=== PATIENT | female | born 1950 | race Asian ===

== ENCOUNTER 2018-06-23 13:04 | Emergency (ER) | payer MEDICARE, OTHER, SELFPAY ==
[2018-06-23 13:10] VITALS: BP 156/74; PULSE 61; RESP 13; TEMP 36.9; O2SAT 97; BMI 25.0
--- NOTE | 2018-06-23 13:25 | ED.DIZZY ---
HPI - Dizziness <Deborah Sin PA-C - Last Filed: 06/23/18 21:41> General Chief Complaint: Dizziness Stated Complaint: BALL ON RIGHT SIDE OF THROAT Time Seen by Provider: 06/23/18 13:25 Source: patient and family Mode of arrival: ambulatory Limitations: no limitations History of Present Illness HPI Narrative: This 68-year-old female comes in today she states due to her 's concerns about swelling in her neck. She states that when she got up this morning and looked in the mirror, she noted that the right side of her neck looked swollen like a ?golf ball?. Her noticed this as well. She states that this was not painful, but does tend to sleep on her left side with her neck bent. She states that she has not noted any swollen glands or lumps. She has not had any fever or sweats. She has not had any recent travel, any illness or new rashes. She has had an intermittent mild cough for 10 years and notes she had normal lung studies done here last year. This has not been any worse. She has not had any wheeze or dyspnea. She did have very momentary dizziness when she 1st got out of bed this morning. She states that this resolved quickly on its own and she has felt fine since she ate breakfast. She states that she has not had any chest pain, nausea, vomiting, new swelling in her extremities or any other new symptoms such as pain or difficulty with swallowing, and the neck swelling is much improved now. Her concurs with this as well. She has been going about her usual activities Related Data Home Medications Medication Instructions Recorded Confirmed amlodipine 10 mg PO DAILY 06/23/18 06/23/18 aspirin 1 tab PO DAILY 06/23/18 06/23/18 fenofibrate nanocrystallized 1 tab PO DAILY 06/23/18 06/23/18 [Triglide] insulin glargine [Lantus Solostar 1 dose SUBCUT DIRECTED 06/23/18 06/23/18 U-100 Insulin] metformin 1,000 mg PO BID 06/23/18 06/23/18 metoprolol succinate 1 tab PO DAILY 06/23/18 06/23/18 pravastatin 1 tab PO DAILY 06/23/18 06/23/18 sertraline 100 mg PO DAILY 09/25/18 09/25/18 telmisartan-hydrochlorothiazid 1 tab PO DAILY 06/23/18 06/23/18 [Micardis HCT] Review of Systems <HUGO Steinberg Last Filed: 06/23/18 21:41> Review of Systems All systems reviewed & are unremarkable except as noted in HPI and below PFSH <HUGO Steinberg Last Filed: 06/23/18 21:41> Comment: Occasional ETOH, no street drugs Exam <HUGO Steinberg Last Filed: 06/23/18 21:41> Narrative Exam Narrative: GENERAL APPEARANCE: Patient sitting comfortably, in no distress. Appears well. EYES: PERRL, EOMI. ORAL CAVITY: Normal oropharynx. THROAT: Clear. NECK/THYROID: Neck supple, full range of motion, there is some subtle enlargement/asymmetry of the right anterior cervical musculature versus the left. There are no circumscribed anterior nodes. There are palpable bilateral posterior nodes less than 1 cm in diameter, symmetric. Trachea is midline with normal swallow LUNGS: Clear to auscultation bilaterally, no cough on exam. HEART: RRR without murmur, nl S1, S2, no S3 or S4. ABDOMEN: Soft, nontender, nondistended EXTREMITIES: No cyanosis, edema or calf tenderness DERMATOLOGIC: No exanthem NEUROLOGIC: Patient is alert and oriented with normal speech and coordination LYMPH: No axillary or supraclavicular nodes Initial Vital Signs Initial Vital Signs: Vital Signs Temperature 98.4 F 06/23/18 13:10 Pulse Rate 61 06/23/18 13:10 Respiratory Rate 13 06/23/18 13:10 Blood Pressure 156/74 H 06/23/18 13:10 Pulse Oximetry 97 06/23/18 13:10 <Zhou Matt DO - Last Filed: 06/24/18 07:02> Initial Vital Signs Initial Vital Signs: Vital Signs Temperature 98.4 F 06/23/18 13:10 Pulse Rate 61 06/23/18 13:10 Respiratory Rate 13 06/23/18 13:10 Blood Pressure 156/74 H 06/23/18 13:10 Pulse Oximetry 97 06/23/18 13:10 Course <HUGO Steinberg Last Filed: 06/23/18 21:41> Additional Information: Patient does have some asymmetry in her neck, and some lymph nodes noted on exam, however this is significantly improved from morning. She had some momentary postural dizziness this morning that has resolved, and she is feeling normal now. Offered further evaluation now with imaging and lab work, versus doing as an outpatient, and she prefers to do as an outpatient. She agreed to return if any acutely worsening symptoms again prior to follow-up with her PCP. Vital Signs - 8 hr 06/23/18 13:10 Temperature 98.4 F Pulse Rate 61 Respiratory Rate 13 Blood Pressure 156/74 H Pulse Oximetry 97 <Zhou Matt, DO - Last Filed: 06/24/18 07:02> Vital Signs - 8 hr 06/23/18 13:10 Temperature 98.4 F Pulse Rate 61 Respiratory Rate 13 Blood Pressure 156/74 H Pulse Oximetry 97 Discharge Plan Departure Patient Disposition: Home Clinical Impression: Enlarged lymph node in neck, Postural dizziness Discharge Date/Time: 06/23/18 14:01 Interventions: ED Discharge Assessment Last Done: 06/23/18 14:01 Activity Restrictions/Additional Instructions: Since you are feeling better now and your neck swelling is much improved, it is okay to follow up as an outpatient as we discussed. If you continue to have swollen glands, you do need to have further testing including lab work and imaging such as a CT scan to get a better look at the glands. Since you were just briefly dizzy when you got out of bed, it is okay to monitor this as well. I agree with you that this most likely occurred due to getting out of bed quickly and having an empty stomach, so please make sure you get up more slowly and if you are feeling lightheaded in the morning, be sure to check your blood sugar as well. Please schedule a follow-up with your PCP in the next week and monitor your symptoms in the interim. You should return immediately as we talked about if you have any acutely worsening or persistent symptoms, or new symptoms such as difficulty swallowing or breathing Prescriptions: No Action pravastatin 40 mg tablet 1 tab PO DAILY RF: 0 metoprolol succinate 100 mg tablet extended release 24 hr 1 tab PO DAILY RF: 0 sertraline 100 mg tablet 100 mg PO DAILY RF: 0 aspirin 81 mg tablet,delayed release (DR/EC) 1 tab PO DAILY RF: 0 amlodipine 10 mg tablet 10 mg PO DAILY RF: 0 metformin 1,000 mg tablet 1,000 mg PO BID RF: 0 telmisartan-hydrochlorothiazid [Micardis HCT] 80-25 mg tablet 1 tab PO DAILY RF: 0 insulin glargine [Lantus Solostar U-100 Insulin] 100 unit/mL (3 mL) insulin pen 1 dose subcut DIRECTED RF: 0 fenofibrate nanocrystallized [Triglide] 160 mg tablet 1 tab PO DAILY RF: 0 Referrals: Provider,Conversion [Non-Staff] - Binh Rooney MD [Non-Staff] - <Zhou Matt DO - Last Filed: 06/24/18 07:02> Cosign ED Attending Joaquín Attestation: I was available for consultation during this patient's emergency department encounter
--- NOTE | 2018-06-23 13:45 | PC.NURSE ---
pt has area on rt side of neck, that has some swelling.
== END 2018-06-23 14:01 | disposition home or self-care (01) ==
LOC: ED 14:04
PROVIDERS: Emergency Provider Internal Medicine
DX: R59.0 Localized enlarged lymph nodes (principal); R42 Dizziness and giddiness
CPT/HCPCS: 99282

== ENCOUNTER → 2018-08-14 08:30 | Outpatient (CLI) | payer MEDICARE, OTHER, SELFPAY ==
--- NOTE | 2018-08-14 | DI.US.S_ITS ---
PROCEDURE: US THYROID INDICATIONS: NODULE TECHNIQUE: Real-time scanning was performed of the thyroid gland, with image documentation. COMPARISON: None. FINDINGS: Right: Thyroid lobe measures 4.7 x 2.3 x 3.0 cm, and is homogeneous in echotexture. Left: Thyroid lobe measures 4.3 x 2.0 x 2.3 cm, and is homogenous in echotexture. Isthmus: 3.0 mm thick. Nodule number: 1 Location: Right superior to mid Size: 3.1 x 2.4 x 2.1 cm. Composition: Predominantly cystic Echogenicity: Anechoic Shape: wider than tall. Margins: Smooth Echogenic foci: Punctate foci of peripheral calcification Total points: 3 ACR TI-RADS category: Mildly suspicious Nodule number: 2 Location: Right inferior Size: 0.7 x 0.6 x 0.5 cm. Composition: Predominantly solid Echogenicity: Isoechoic Shape: wider than tall. Margins: Smooth Echogenic foci: Internal punctate echogenic foci Total points: 6 ACR TI-RADS category: Moderately suspicious Nodule number: 3 Location: Left superior Size: 1.3 x 0.9 x 0.8 cm. Composition: Solid Echogenicity: Hypoechoic Shape: wider than tall. Margins: Smooth Echogenic foci: None Total points: 4 ACR TI-RADS category: Moderately suspicious Nodule number: 4 Location: Left mid Size: 1.3 x 0.9 x 0.8 cm. Composition: Solid Echogenicity: Hypoechoic Shape: wider than tall. Margins: Smooth Echogenic foci: None Total points: 4 ACR TI-RADS category: Moderately suspicious Nodule number: 5 Location: Left mid Size: 0.7 x 0.7 x 0.7 cm. Composition: Predominantly solid Echogenicity: Hypoechoic Shape: wider than tall. Margins: Smooth Echogenic foci: None Total points: 4 ACR TI-RADS category: Moderately suspicious Nodule number: 4 Location: 6 Size: Left inferior cm. Composition: 0.8 x 0.5 x 0.6 Echogenicity: Predominantly solid and Shape: wider than tall. Margins: Smooth Echogenic foci: Internal punctate echogenic foci Total points: 6 ACR TI-RADS category: Moderately suspicious IMPRESSION: Thyroid nodules as above. Recommend continued followup and/or fine needle aspiration as detailed below. ACR TI-RADS definitions and recommendations: TI-RADS 1 (benign): 0 points. FNA not needed. TI-RADS 2 (not suspicious): 2 points. FNA not needed. TI-RADS 3 (mildly suspicious): 3 points. * FNA if 2.5 cm or larger, follow up if 1.5 cm or larger (at 1, 3, and 5 years). TI-RADS 4 (moderately suspicious): 4-6 points. * FNA if 1.5 cm or larger, follow up if 1 cm or larger (at 1, 2, 3, and 5 years). TI-RADS 5 (highly suspicious): 7 points or more. * FNA if 1 cm or larger, follow up if 0.5 cm or larger (every year for 5 years). Dictated by: Joon MARIN Interpreted: Ria Cadet MD on 08/14/2018 at 10:05 Approved by: Ria Cadet M.D. on 08/14/2018 at 11:44
== END ==
PROVIDERS: Visit Provider Otolaryngology
DX: E04.2 Nontoxic multinodular goiter (principal)
CPT/HCPCS: 76536

== ENCOUNTER → 2018-09-09 09:02 | Outpatient (CLI) | payer MEDICARE, OTHER, SELFPAY ==
--- NOTE | 2018-09-09 | DI.US.S_ITS ---
PROCEDURE: US FINE NEEDLE ASPIRATION INDICATIONS: Nontoxic multinodular goiter TECHNIQUE: The indications, alternatives, benefits, risks, and complications of the procedure were explained to the patient. Written informed consent was obtained and placed in the chart. The area of interest was examined sonographically and a site was chosen for ultrasound guided percutaneous sampling. The skin was prepared and draped in the usual fashion, and anesthetized with 1% lidocaine infiltrated from the skin down to the lesion. Multiple passes were then performed, with contents emptied into an appropriate pathology specimen container. A bandage was applied to the area of access completion of the study. COMPARISON: None. FINDINGS: Location(s) of lesion(s) sampled: Right thyroid lobe upper to mid pole and left thyroid lobe upper to midpole Keller: 25 gauge hypodermic needles. Number of passes: 5 passes on the right side, and 5 passes on the left side Medications: 1% lidocaine for local anaesthesia. Complications: None. IMPRESSION: Successful ultrasound-guided bilateral thyroid nodule fine needle aspiration, with cytology results pending. Dictated by: Sd Marrero M.D. on 09/09/2018 11:51 Approved by: Sd Marrero M.D. on 09/09/2018 at 11:53
--- NOTE | 2018-09-09 | PATH_ITS ---
Note [facility] Accession Number: [id number] TESTS RESULT FLAG UNITS REF RANGE LAB Clinician Provided Cytology Information No. of containers..01 ThinPrep Vial No. of containers..00 Previously Prepared Cytology Slide RIGHT THYROID NODULE DIAGNOSIS: 02 RIGHT THYROID NODULE NEGATIVE FOR MALIGNANT CELLS. SPECIMEN CONSISTS OF BENIGN FOLLICULAR CELLS, HEMOSIDERIN-LADEN MACROPHAGES, COLLOID, AND BLOOD. THIS PATTERN IS CONSISTENT WITH A COLLOID NODULE. THIS INTERPRETATION INCLUDES EVALUATION OF A CELL BLOCK. Pathologist ICD10: 02 E04.1 02 Darcie Knight MD, Pathologist NPI- [id number] Juaquin Schmidt, Internet Marketing Assistant ([facility]) 01 30 CC, RED, CLOUDY RECEIVED: 5 ALCOHOL FIXED AND 5 QUICK STAINED SLIDES WITH 1 RNA VIAL. /VDU FLAG LEGEND: L-Low Normal,H-High Normal,LL-Alert Low,HH-Alert High <-Panic Low,>-Panic High,A-Abnormal,AA-Critical Abnormal Performed at: 01 =Z [facility] [address], [place] [address] Cristi Escobar MD, 02 [facility] [address] [place] [phone] Jenny Lopez MD, Performed at: 01 [facility] [address], [place], [place] [id number] MD Cristi Escobar MD Phone: [phone]
--- NOTE | 2018-09-09 | PATH_ITS ---
Note [facility] Accession Number: [id number] TESTS RESULT FLAG UNITS REF RANGE LAB Clinician Provided Cytology Information No. of containers..01 ThinPrep Vial No. of containers..00 Previously Prepared Cytology Slide 01 L THYROID NODULE DIAGNOSIS: 02 L THYROID NODULE INCONCLUSIVE. ATYPIA OF UNDETERMINED SIGNIFICANCE. COMMENT: Follicular cells, predominantly benign-appearing, with focal cytologic atypia. A repeat aspirate after an appropriate interval of observation may be helpful, if clinically indicated. Pathologist ICD10: 02 R89.6 02 Darcie Knight MD, Pathologist NPI- [id number] 01 Fede Blanco, Plan Manager ([facility]) 01 30 CC, PALE PINK, CLEAR Also received 5 alcohol fixed, 5 quick stained slides, and 1 RNA vial. /HK FLAG LEGEND: L-Low Normal,H-High Normal,LL-Alert Low,HH-Alert High <-Panic Low,>-Panic High,A-Abnormal,AA-Critical Abnormal Performed at: 01 =Z [facility] [address], [place] [address] Cristi Escobar MD, 02 [facility] [place] [address] [place] [phone] Jenny Lopez MD, Performed at: 01 [facility] [address], [place], [place] [id number] MD Cristi Escobar MD Phone: [phone]
== END ==
PROVIDERS: Visit Provider Otolaryngology
DX: E04.2 Nontoxic multinodular goiter (principal)
CPT/HCPCS: 10022; 76942

== ENCOUNTER → 2021-05-21 15:59 | Outpatient (CLI) | payer MEDICARE, OTHER, SELFPAY ==
--- NOTE | 2021-05-21 | DI.RAD.S_ITS ---
PROCEDURE: XR THORACIC SPINE 3V INDICATIONS: PAIN TECHNIQUE: 3 views of the thoracic spine were acquired. COMPARISON: None. FINDINGS: Bones: No fractures or dislocations. No suspicious bony lesions. 12 pairs of ribs are noted, and appear intact where visualized. Mild multilevel degenerative disc space narrowing is present within visualized portions thoracic and spine. Small anterior scattered osteophytes are present. Soft tissues: No paravertebral stripe thickening. Heart is enlarged. IMPRESSION: Degenerative changes as above. If concern persists, is recommended. Dictated by: Ria Cadet M.D. on 05/21/2021 at 16:46 Approved by: Ria Cadet M.D. on 05/21/2021 at 16:46
== END ==
PROVIDERS: Referring Provider Orthopaedic Surgery; Visit Provider Orthopaedic Surgery
DX: M54.6 Pain in thoracic spine (principal); M47.814 Spondylosis without myelopathy or radiculopathy, thoracic region
CPT/HCPCS: 72072

== ENCOUNTER → 2021-07-02 08:18 | Outpatient (CLI) | payer MEDICARE, OTHER, SELFPAY ==
[2021-07-02 11:19] LABS: COVID19 -Nasal RAPID Negative (Negative)
== END ==
PROVIDERS: Visit Provider Nurse Practitioner Family
DX: Z20.822 Contact with and (suspected) exposure to COVID-19 (principal); Z01.812 Encounter for preprocedural laboratory examination
CPT/HCPCS: 87635; C9803

== ENCOUNTER 2021-07-03 08:47 | Day surgery (SDC) | payer MEDICARE, OTHER, SELFPAY ==
[2021-07-03] VITALS (7 sets, daily range): BP systolic 112–133; BP diastolic 60–73; PULSE 60–66; RESP 12–65; TEMP 36.6–36.8; O2SAT 98–100; BMI 23.3
--- NOTE | 2021-07-03 | PATH_ITS ---
[facility] Accession Number: [id number] . 01 Material submitted: . PART A: duodenum - DUODENAL PART B: stomach - ANTRUM . 02 Diagnosis: A. Duodenum, Biopsy: Duodenal mucosa with no diagnostic abnormality. Negative for active inflammation, features of sprue, dysplasia, or malignancy. . . B. Stomach, Antrum, Biopsy: Acute erosive gastritis. Negative for Helicobacter by immunohistochemistry. Negative for intestinal metaplasia. Negative for dysplasia and malignancy. MRV 07/06/2021 1541 Local . 02 Electronically signed: . Jenny Lopez MD, Pathologist NPI- [id number] . 01 Gross description: . Part A: DUODENAL: Received in formalin are 4 fragment(s) of banks, soft tissue measuring 0.6 x 0.2 x 0.1 cm to 0.3 x 0.2 x 0.1 cm submitted entirely in 1 cassette(s) Part B: ANTRUM: Received in formalin are 2 fragment(s) of banks, soft tissue measuring 0.4 x 0.3 x 0.1 cm to 0.1 x 0.1 x 0.1 cm submitted entirely in 1 cassette(s) /JAXON 07/04/2021 0336 Local . 02 Microscopic: . B. An immunohistochemical stain was performed to evaluate for Helicobacter organisms and is negative. The control stain showed appropriate reactivity. . * This test was developed and its performance characteristics determined by [facility]. It has not been cleared or approved by the U.S. Food and Drug Administration. The FDA has determined that such clearance or approval is not necessary. This test is used for clinical purposes. It should not be regarded as investigational or for research. . 02 Pathologist provided ICD-10: R63.4 . 02 CPT . 882001, 441129, [id number] Performed at: 01 [facility] [address] [id number] MD Cristi Escobar MD Phone: [phone] Performed at: 02 [facility] [address] [place], [place] [id number] MD Jenny Lopez MD Phone: [phone]
[2021-07-03] MEDS: SODIUM CHLORIDE 0.9% 1,000 ML 84 ML IV (09:36)
--- NOTE | 2021-07-03 09:39 | PM.HP.1 ---
History of Present Illness History of Present Illness Date Patient Seen: 07/03/21 Time Patient Seen: 09:39 Chief complaint: SDC Narrative: I reviewed my note from May 21, 2021 no changes other than the patient continues to lose weight. She is not vomiting. She has very little appetite denies diarrhea but of course had the fecal occult blood positivity. Patient History Medical History Diabetic neuropathy HTN (hypertension) Hyperlipidemia Insulin dependent diabetes mellitus Surgical History History of elbow surgery Status post debridement of bone spur Family & Social History Social History: household members spouse Tobacco & Substance use: Smoking Status Former smoker alcohol intake never alcohol intake frequency holiday/special occasion Substance Use Type does not use Meds Home Medications and Allergies Home Medications Medication Instructions Recorded Confirmed Type amlodipine 10 mg tablet 10 mg PO DAILY 06/23/18 07/03/21 History aspirin 81 mg tablet,delayed 1 tab PO DAILY 06/23/18 07/03/21 History release fenofibrate nanocrystallized 160 1 tab PO DAILY 06/23/18 07/03/21 History mg tablet insulin glargine 100 unit/mL (3 1 dose SUBCUT DIRECTED 06/23/18 07/03/21 History mL) subcutaneous pen metformin 1,000 mg tablet 1,000 mg PO BID 06/23/18 07/03/21 History metoprolol succinate 100 mg 1 tab PO DAILY 06/23/18 07/03/21 History tablet,extended release 24 hr pravastatin 40 mg tablet 1 tab PO DAILY 06/23/18 07/03/21 History sertraline 100 mg tablet 100 mg PO DAILY 06/23/18 07/03/21 History telmisartan 80 1 tab PO DAILY 06/23/18 07/03/21 History mg-hydrochlorothiazide 25 mg tablet Allergies Allergy/AdvReac Type Severity Reaction Status Date / Time No Known Drug Allergies Allergy Verified 07/03/21 09:07 Review of Systems Review of Systems ROS: Yes All systems reviewed with the patient and are negative except as otherwise documented Exam Vital Signs (past 8 hours): - 07/03/21 09:27 Temperature 97.9 F Pulse Rate 66 Respiratory Rate 14 Blood Pressure 125/73 Pulse Oximetry 99 Oxygen Delivery Method Room Air Const General: cooperative and comfortable Orientation: alert HENMT Head: normocephalic Ears: external ears normal Nose: external nose normal Face and sinus: normal facial exam Mouth: oral mucosae normal Eyes General: appearance normal, both eyes and all related structures Neck Neck: normal visual inspection Chest Chest: normal inspection of the chest Resp Effort & Inspection: normal respiratory effort Auscultation: clear to auscultation bilaterally Cardio Rate: regular rate Rhythm: regular rhythm Heart Sounds: no murmurs GI Inspection: normal to inspection Palpation: soft and No tender Auscultation: normal bowel sounds Skin General: no rashes or lesions noted and No jaundice Neuro General: patient alert and moves all extremities Cognition: normal cognition Speech: speech normal Extrem General: no pedal edema Psych Appearance: grossly normal Assessment & Plan Assessment & Plan narrative: Weight loss diminished appetite family history of gastric cancer altered bowel habit with fecal occult blood positivity. EGD and colonoscopy are pursued today Time Spent With Patient Critical Care time: I spent a total of [] minutes of critical care time on this patient's care today; this time is exclusive of procedural time.
--- NOTE | 2021-07-03 09:41 | PM.PREOP ---
Pre-operative Note COVID-19 COVID-19 status: Negative Result date/Date tested (Pos, Neg/Pending): 07/02/21 Interval Note History & Physical reviewed/Exam performed by Physician: Yes Changes to H&P: No ASA Class (for procedural sedation): II
--- NOTE | 2021-07-03 10:19 | P.OP.EGD&C_ITS ---
Operative Date/Time/Diagnoses Date of procedure: 07/03/21 Time of procedure: 10:19 Pre-op diagnosis: Weight loss change in bowel color fecal occult blood positivity and a family history of gastric cancer Post-op diagnosis: same Procedure & Clinicians Study performed: EGD with biopsies and a colonoscopy Same procedure as scheduled: Yes Indications: Weight loss change in bowel color fecal occult blood positivity and a family history of gastric cancer Surgeon: Shaggy Harris Procedure Notes SCOAP/Timeout: Done Procedure in detail: After the risks and benefits were explained, written and verbal informed consent was obtained. The patient was brought into the procedure room and placed into the left lateral decubitus position. Please see nurse classroom technology coach notes for sedation details. The scope was introduced into the mouth through the bite block and advanced under direct visualization to the 2nd portion of the duodenum. The scope was slowly withdrawn carefully examining the mucosa for any defects or lesions. Retroflexed views were accomplished in the stomach. The stomach was decompressed, the scope was then removed from the patient who tolerated the procedure well. Patient was then turned around a digital rectal examination accomplished. Grade 2 internal nonbleeding nonthrombosed hemorrhoids were appreciated the scope was introduced into the rectum and advanced under direct visualization to the level of the cecum as identified by the appendiceal orifice and ileocecal valve. The scope was advanced up into the terminal ileum. The scope was then slowly withdrawn to carefully examine the mucosa for any defects or lesions. Multiple direct views were made through the dentate line for exclusion of pathology the colon was decompressed scope removed from the patient who tolerated the procedure well. Bowel prep adequate Pediatric colonoscope Scope withdrawal time: 10 minutes Sedation minutes: 32 Complications: none Impression: 1. Duodenum: This appeared visually normal from the bulb through to the 2nd portion. Random biopsies were taken from the 2nd portion for exclusion of sprue in light of her weight loss. 2. Stomach: No ulcers no outlet obstruction no mass lesions appreciated throughout. Retroflexed views of the LES disclosed a subtle sliding hiatal hernia and fairly patulous lower esophageal sphincter mechanism. There was evidence of some scattered linear subtle erosions in the region of the antrum. This resulted in the appearance of some old dark blood that had evidently oozed from a variety of these locations recently. No evidence of any active bleeding no evidence of any lesion that demanded endoscopic intervention. Biopsies from the eroded regions were acquired and submitted for histopathologic analysis. 3. Esophagus: The squamocolumnar junction correlated with the top of the gastric folds. The GEJ was at approximately 38 cm from the incisors. No acute erosive changes no strictures no mass lesions. The remainder of the esophagus was unremarkable. 4. Colon: No evidence of any proctitis no macroscopic colitis throughout. There were some scattered diverticula in the left and right colon. No significant polyps mass lesions or additional pathology appreciated throughout. 5. Terminal ileum: This appeared visually normal with well preserved noninflamed villi. Endoscopic diagnosis 1. Erosive gastropathy 2. Subtle sliding hiatal hernia 3. Otherwise visually unremarkable upper endoscopy 4. Diverticulosis 5. Grade 2 internal hemorrhoids 6. Otherwise visually unremarkable colonoscopy and terminal ileoscopy Post-procedure Recommendations: Colonscopy in 10 years Plan for aftercare: 1. Await histopathology 2. Repeat colonoscopy 10 years time sooner should symptoms warrant an earlier exam. 3. Follow up GI clinic Disposition: PACU
== END 2021-07-03 11:10 | disposition home or self-care (01) ==
PROVIDERS: PCP Family Medicine; Referring Provider Internal Medicine Gastroenterology; Visit Provider Internal Medicine Gastroenterology
PROC: 0DJ08ZZ Inspection of Upper Intestinal Tract, Via Natural or Artificial Opening Endoscopic (ICD-10-PCS; CPT 43235; principal; 2021-07-03 10:00)
PROC: 0DJD8ZZ Inspection of Lower Intestinal Tract, Via Natural or Artificial Opening Endoscopic (ICD-10-PCS; CPT 45378; 2021-07-03 10:00)
DX: R19.5 Other fecal abnormalities (principal); R63.4 Abnormal weight loss; Z80.0 Family history of malignant neoplasm of digestive organs; K31.9 Disease of stomach and duodenum, unspecified; K29.00 Acute gastritis without bleeding; K44.9 Diaphragmatic hernia without obstruction or gangrene; K57.30 Diverticulosis of large intestine without perforation or abscess without bleeding; K64.1 Second degree hemorrhoids
CPT/HCPCS: 43239; 45378; 82962; J2704; J3010

== ENCOUNTER → 2022-02-01 08:52 | Outpatient (CLI) | payer MEDICARE, OTHER, SELFPAY ==
--- NOTE | 2022-02-01 09:02 | DI.US.S_ITS ---
PROCEDURE: US ABDOMEN COMPLETE INDICATIONS: ABNORMAL SERUM LEVEL TECHNIQUE: Real-time scanning was performed of the abdominal and retroperitoneal organs, with image documentation. COMPARISON: None. FINDINGS: Liver: Liver is normal in size and homogeneous in echotexture. Main portal vein demonstrates hepatopetal flow. Gallbladder: Nondilated. No stones or sludge. Normal gallbladder wall thickness. No pericholecystic fluid. Negative sonographic Mckenzie's sign. Biliary ducts: Intrahepatic bile ducts are non-dilated. Extrahepatic bile duct caliber measures 8 mm. Normal is 6-7 mm or less in diameter, or 10 mm or less post-cholecystectomy. Pancreas: Small cyst in the pancreatic tail measuring 1.1 x 0.9 x 0.7 cm no internal vascularity is seen. No pancreatic ductal dilatation appreciated. Spleen: Spleen is normal in size and homogeneous in echotexture. Measures 7.6 cm. Kidneys: Kidneys are normal in size and echotexture. Right kidney measures 10.3 cm long; left kidney measures 10.5 cm long. No hydronephrosis or nephrolithiasis. No solid masses. Aorta: Visualized aorta is normal in caliber at less than 3 cm. Iliacs: Proximal common iliac arteries are normal in caliber at less than 2.5 cm. IVC: Intrahepatic inferior vena cava is patent. Miscellaneous: No free abdominal fluid. IMPRESSION: 1. No gallstones. 2. No hydronephrosis. 3. Small cystic lesion in the tail the pancreas measuring 1.1 cm. Recommend further evaluation with MRI pancreas or CT. Dictated by: Matty Cotton M.D. on 02/01/2022 at 12:26 Approved by: Matty Cotton M.D. on 02/01/2022 at 12:31
--- NOTE | 2022-02-01 09:03 | DI.RAD.S_ITS ---
PROCEDURE: XR CHEST 2V INDICATIONS: INFLAMMATION TECHNIQUE: 2 views of the chest were acquired. COMPARISON: [facility], CR, XR THORACIC SPINE 3V, 05/21/2021, 16:13. FINDINGS: Surgical changes and devices: None. Lungs and pleura: Lungs are clear. No pleural effusions or pneumothorax. Mediastinum: Mediastinal contours are unchanged. Heart size is within normal limits. Bones and chest wall: No suspicious bony abnormalities. Soft tissues appear unremarkable. IMPRESSION: No acute cardiopulmonary abnormality. Dictated by: Matty Cotton M.D. on 02/01/2022 at 14:30 Approved by: Matty Cotton M.D. on 02/01/2022 at 14:31
== END ==
PROVIDERS: PCP Family Medicine; Referring Provider Family Medicine; Visit Provider Family Medicine
DX: K86.9 Disease of pancreas, unspecified (principal); R74.9 Abnormal serum enzyme level, unspecified; I10 Essential (primary) hypertension
CPT/HCPCS: 71046; 76700

== ENCOUNTER → 2022-04-22 14:07 | Outpatient (CLI) | payer MEDICARE, OTHER, SELFPAY ==
--- NOTE | 2022-04-22 | DI.MRI.S_ITS ---
PROCEDURE: MR ABDOMEN WO/W CON INDICATIONS: Cyst of pancreas TECHNIQUE: Coronal HASTE, axial 2D FLASH in- and [id number]; axial breath-hold T2 FSE with fat saturation from the hepatic dome to the iliac crests. Oblique coronal thin-slice and radial thick slab HASTE through the biliary system. Dynamic axial VIBE during administration of contrast. Post-contrast coronal VIBE or 2D FLASH with fat saturation from the hepatic dome to the iliac crests. Optional diffusion weighted imaging and ADC may be performed. COMPARISON: None. FINDINGS: Image quality: Excellent. Pancreas and biliary system: 10 x 6 millimeter inferior pancreatic body cystic lesion. Pancreatic duct is prominent, but not dilated. Common bile duct is also prominent, without pathologic dilation. Gallbladder is unremarkable. Solid organs: Liver is normal in size and enhancement. Spleen is normal in size and enhancement. . Small renal cysts. No hydronephrosis. Possible subcentimeter left medial limb adrenal nodule versus thickening. Nodes and vessels: Prominent anisha hepatis lymph node. No enlarged nodes by size criteria. No abdominal aortic aneurysm. Bowel and peritoneum: Unenhanced bowel loops are normal in caliber throughout. No free fluid. Lung bases: No basal pleural effusions. Heart size is normal. Bones and soft tissues: Small fat containing umbilical hernia. No suspicious osseous lesion. IMPRESSION: 10 x 6 millimeter inferior pancreatic body cystic lesion. Follow-up MRI is recommended every 1-2 years, for a total up to 10 years. Other incidental findings above can also be followed on subsequent imaging. Dictated by: Jimmy Pruitt M.D. on 04/22/2022 at 15:58 Approved by: Jimmy Pruitt M.D. on 04/22/2022 at 16:10
== END ==
PROVIDERS: PCP Family Medicine; Referring Provider Family Medicine; Visit Provider Family Medicine
DX: K86.2 Cyst of pancreas (principal)
CPT/HCPCS: 74183; A9579

== ENCOUNTER → 2023-01-15 11:14 | Outpatient (CLI) | payer MEDICARE, OTHER, SELFPAY ==
--- NOTE | 2023-01-15 11:17 | DI.MRI.S_ITS ---
PROCEDURE: MR HEAD/BRAIN WO/W CON INDICATIONS: OTHER HEADACHE SYNDROME TECHNIQUE: Noncontrast axial T1 spin echo, axial T2 fast spin echo, sagittal and axial FLAIR, coronal T2 fast spin echo, axial gradient echo, axial diffusion and ADC through the brain. After the administration of contrast, axial and coronal and sagittal T1 spin echo with fat saturation through the brain. COMPARISON: None. FINDINGS: Image quality: There is artifact associated with the metallic dental hardware. CSF spaces: Basal cisterns are patent. No extra-axial fluid collections. Ventricles are normal in size and shape. Brain: No midline shift. No intracranial bleeds or masses. No abnormal intracranial enhancement. There is cerebral volume loss for age. There is periventricular white matter chronic small vessel ischemic change. The brainstem appears normal. Diffusion-weighted images demonstrate no acute ischemic insults. No chronic ischemic insults. Normal intravascular flow voids are present. Skull and face: Calvarial marrow is normal in signal. Orbits appear normal. Sinuses: Sinuses and mastoids appear clear. IMPRESSION: Unremarkable intracranial study, without an imaging explanation found for the patient's presenting history of headache. Dictated by: Edmund Yarbrough M.D. on 01/15/2023 at 12:26 Approved by: Edmund Yarbrough M.D. on 01/15/2023 at 12:27
== END ==
PROVIDERS: PCP Family Medicine; Referring Provider Family Medicine; Visit Provider Family Medicine
DX: G44.89 Other headache syndrome (principal)
CPT/HCPCS: 70553

== ENCOUNTER → 2025-07-04 12:27 | Outpatient (CLI) | payer MEDICARE, OTHER, SELFPAY ==
--- NOTE | 2025-07-04 12:29 | DI.US.S_ITS ---
PROCEDURE: US THYROID INDICATIONS: THYROID NODULE TECHNIQUE: Real-time scanning was performed of the thyroid gland, with image documentation. COMPARISON: [facility], US, US THYROID, 08/14/2018, 8:58. FINDINGS: Thyroid: Right lobe measures 4.6 x 2.2 x 2.0 cm (4.7 x 2.3 x 3.0 cm). Left lobe measures 4.6 x 2.2 x 2.2 cm (4.3 x 2.0 x 2.3 cm). Isthmus is 1.2 mm thick. Echotexture is homogeneous. Nodule number: 1 Location: Right superior mid Size: 1.3 x 1.0 x 1.1 cm (3.1 x 2.4 x 2.1 cm). Composition: Solid Echogenicity: Hypoechoic Shape: wider than tall. Margins: Smooth Echogenic foci: Punctate Total points: 5 ACR TI-RADS category: 4 Nodule number: 2 Location: Left superior mid Size: 2.7 x 1.5 x 2.0 cm (2.3 x 1.8 x 1.8 cm). Composition: Mixed Echogenicity: Isoechoic Shape: wider than tall. Margins: Smooth Echogenic foci: Punctate and calcific Total points: 5 ACR TI-RADS category: 4 IMPRESSION: Per ACR TI-RADS scoring continue follow-up, nodule 1 and 2 have been previously biopsied. ACR TI-RADS definitions and recommendations: TI-RADS 1 (benign): 0 points. FNA not needed. TI-RADS 2 (not suspicious): 2 points. FNA not needed. TI-RADS 3: 3 points. * FNA if 2.5 cm or larger, follow up if 1.5 cm or larger (at 1, 3, and 5 years). TI-RADS 4: 4-6 points. * FNA if 1.5 cm or larger, follow up if 1 cm or larger (at 1, 2, 3, and 5 years). TI-RADS 5: 7 points or more. * FNA if 1 cm or larger, follow up if 0.5 cm or larger (every year for 5 years). Diet Dom go Dictated by: Katarzyna France RRA Interpreted: Sd Marrero MD on 07/04/2025 at 15:02 Transcribed by: SEEMA on 07/04/2025 at 15:08 Approved by: Sd Marrero M.D. on 07/04/2025 at 17:34
== END ==
PROVIDERS: PCP Family Medicine; Referring Provider Family Medicine; Visit Provider Family Medicine
DX: E04.2 Nontoxic multinodular goiter (principal)
CPT/HCPCS: 76536